=== PATIENT | male | born 1985 | race Caucasian/White ===

== ENCOUNTER 2017-08-12 10:04 | Emergency (ER) | payer OTHER ==
[~2017-08-12] VITALS: Ht 177.8 cm; Wt 77.6 kg
[2017-08-12 10:20] VITALS: Ht 177.8 cm; Wt 77.6 kg
[2017-08-12 11:34] VITALS: BP 112/59
== END 2017-08-12 11:36 | disposition home or self-care (01) ==
LOC: ED 10:04
DX: S50.01XA Contusion of right elbow, initial encounter (principal); R55 Syncope and collapse; X58.XXXA Exposure to other specified factors, initial encounter; Y93.89 Activity, other specified; Y92.89 Other specified places as the place of occurrence of the external cause; Y99.8 Other external cause status
CPT/HCPCS: Q0092